=== PATIENT | male | born 1945 | race Caucasian/White ===

== ENCOUNTER 2023-03-09 06:02 | Day surgery (SDC) | payer MEDICARE, OTHER, SELFPAY ==
--- NOTE | 2023-01-28 12:59 | CM ---
Patient is scheduled for an elective R TSA on 03/09/23- he is a same day patient. Spoke with patient's prior to surgery. Introduced role of Orthopedic Navigator. She reports that they live in a two story home. There is one step to enter and a
flight of steps, with a stair glide (which patient doesn't use), to the second floor. Currently he functions independently. He does not use any DME and has never had VN services. PCP is Dr. Dheeraj Hernandez.
Discussed orthopedic program and post surgical plans. Patient will return home when directed by surgeon. Reviewed MD follow up and transition to outpatient therapy. She is in agreement with tentative plan and states that she will be home with
him and can assist if needed.
Patient will complete online education.
Plan: Orthopedic Navigator will be involved in the care of patient after surgery and will reassess discharge needs at that time.
[2023-02-17 11:48] VITALS: BMI 28.7
[2023-02-17 15:01] VITALS: BMI 28.7
[2023-03-09] VITALS (11 sets, daily range): BP systolic 113–131; BP diastolic 65–87; BMI 28.7
[2023-03-09] MEDS: TYLENOL 1000 MG PO (06:31)
[2023-03-09] MEDS: BACTROBAN NASAL 1 GRAM NASAL (06:32)
[2023-03-09] MEDS: NORMOSOL-R 1000 IV (06:32)
[2023-03-09] MEDS: MOBIC 15 MG PO (06:32)
--- NOTE | 2023-03-09 06:48 | W.DS.TRANS ---
DC Summary - Air Cargo Agent
-
Discharge Instructions:
Sleep Apnea Risk Intermediate
Discharge Diagnosis/Procedures R [facility] TSA Dr. So 03/09/23
Diet As tolerated
Activity No strenuous activity
Driving Restrictions No driving
Instructions:
Stand-Alone Forms:
Changes to Home Medications: Yes
Discharge Medications:
DC Medications w/original date entered in [employer]
pantoprazole 40 mg tablet,delayed release 40 mg PO DAILY 02/11/23
propranolol 20 mg tablet 20 mg PO DAILY essential tremor 02/11/23
tamsulosin 0.4 mg capsule 0.4 mg PO BID 02/11/23
dexamethasone 4 mg tablet 4 mg PO BID inflammation #6 tabs 02/17/23
gabapentin 300 mg capsule 300 mg PO HS sleep/pain #10 caps 02/17/23
meloxicam 15 mg tablet 15 mg PO DAILY anti-inflammatory #14 tabs 02/17/23
mupirocin 2 % topical ointment 1 applic topical BID infection prevention #1 tube 02/17/23
oxycodone 5 mg tablet 5 - 10 mg PO Q6HPRN PRN 1 tab moderate-2 tabs severe pain #30 tabs 02/17/23
aspirin 325 mg tablet 325 mg PO DAILY blood clot prevention #1 tab 03/09/23
docusate sodium 100 mg capsule (Colace) 100 mg PO BID stool softner #1 cap 03/09/23
finasteride 5 mg tablet 5 mg PO DAILY #0 tabs 03/09/23
magnesium hydroxide 400 mg/5 mL oral suspension (Milk of Magnesia) 30 ml PO HS PRN Constipation #1 mL 03/09/23
sennosides 8.6 mg tablet (Senokot) 17.2 mg PO BID laxative #2 tabs 03/09/23
Home Medication Changes
dexamethasone 4 mg tablet 4 mg PO BID inflammation #6 tabs 02/17/23
gabapentin 300 mg capsule 300 mg PO HS sleep/pain #10 caps 02/17/23
meloxicam 15 mg tablet 15 mg PO DAILY anti-inflammatory #14 tabs 02/17/23
mupirocin 2 % topical ointment 1 applic topical BID infection prevention #1 tube 02/17/23
oxycodone 5 mg tablet 5 - 10 mg PO Q6HPRN PRN 1 tab moderate-2 tabs severe pain #30 tabs 02/17/23
Pending Results: No
[2023-03-09] MEDS: DILAUDID 0.5 MG IV (09:32)
[2023-03-09] MEDS: DILAUDID 0.25 MG IV (09:59)
[2023-03-09] MEDS: ANCEF 5 IV (11:30)
== END 2023-03-09 12:40 | disposition home or self-care (01) ==
LOC: SDS 06:02
PROVIDERS: ATTENDING PHYSICIAN Specialist; FAMILY PHYSICIAN Internal Medicine; OTHER PHYSICIAN Internal Medicine Clinical Cardiac Electrophysiology; REFERRING PHYSICIAN Physician Assistant Medical
DX: M19.011 Primary osteoarthritis, right shoulder (principal); M75.21 Bicipital tendinitis, right shoulder
CPT/HCPCS: 23472; C1776; 36415; 73020; 86850; 86900; 86901; 87070; C1713